=== PATIENT | male | born 1955 | race Caucasian/White ===

== ENCOUNTER 2018-12-05 05:25 | Observation (INO) ==
--- NOTE | 2018-11-18 12:34 | PAT Medication Instructions ---
Medication Instructions Date of Service November 18, 2018 Home Medications allopurinol 300 mg PO DAILY atorvastatin 20 mg PO PM baclofen 10 mg PO TID buspirone 15 mg PO TID duloxetine 20 mg PO DAILY fluticasone propionate [Flonase Allergy Relief] 1 spray INTRANASAL DAILY PRN gabapentin 300 mg PO TID hydroxyzine HCl 50 mg PO BID PRN lorazepam 0.5 mg PO BID PRN naproxen 250 mg PO BID propranolol 10 mg PO TID tramadol 50 mg PO Q8H PRN ASK your surgeon for instructions naproxen 250 mg PO BID DO NOT take the morning of surgery baclofen 10 mg PO TID hydroxyzine HCl 50 mg PO BID PRN Take morning of surgery With a small sip of water, OTHERWISE NOTHING TO EAT OR DRINK AFTER MIDNIGHT: allopurinol 300 mg PO DAILY buspirone 15 mg PO TID duloxetine 20 mg PO DAILY fluticasone propionate [Flonase Allergy Relief] 1 spray INTRANASAL DAILY PRN (if needed) gabapentin 300 mg PO TID lorazepam 0.5 mg PO BID PRN (if needed) propranolol 10 mg PO TID tramadol 50 mg PO Q8H PRN (okay to take up to 4 hours prior to surgery if needed) Take evening before surgery atorvastatin 20 mg PO PM baclofen 10 mg PO TID buspirone 15 mg PO TID gabapentin 300 mg PO TID hydroxyzine HCl 50 mg PO BID PRN (if needed) lorazepam 0.5 mg PO BID PRN (if needed) propranolol 10 mg PO TID tramadol 50 mg PO Q8H PRN (if needed) Other Notes If you have any questions please call us at [phone] or [phone] or [phone] or [phone]
--- NOTE | 2018-11-23 11:10 | Anesthesiology Consultation ---
Date of Service November 23, 2018 Assessment & Plan (1) Encounter for pre-operative examination: Chart Review Chart Review: Acceptable Risk for Surgery and Patient seen in Pre Admission Testing Teaching & Discussion Pre-Anesthesia Teaching/Discussion Notes: Instructed NPO after midnight before surgery,except medications with 15 cc of water. Medication instructions provided according to the PAT guidelines. History Surgery Operation Date: 12/05/18 07:30 Proposed Procedures p C3-C4, C4-C5 Anterior Cervical Discectomy and Fusion with Iliac Crest Bone Graft - Zoran Ryan DO Height/Weight Height: 5 ft 9 in Weight: 79.5 kg Allergies Allergy/AdvReac Type Severity Reaction Status Date / Time No Known Allergies Allergy Verified 11/16/18 11:50 Medications Home Medications Medication Instructions Recorded Confirmed Last Taken allopurinol 300 mg PO DAILY 11/16/18 11/16/18 Unknown atorvastatin 20 mg PO PM 11/16/18 11/16/18 Unknown baclofen 10 mg PO TID 11/16/18 11/16/18 Unknown buspirone 15 mg PO TID 11/16/18 11/16/18 Unknown duloxetine 20 mg PO DAILY 11/16/18 11/16/18 Unknown fluticasone propionate [Flonase 1 spray INTRANASAL DAILY PRN 11/16/18 11/16/18 Unknown Allergy Relief] gabapentin 300 mg PO TID 11/16/18 11/16/18 Unknown hydroxyzine HCl 50 mg PO BID PRN 11/16/18 11/16/18 Unknown lorazepam 0.5 mg PO BID PRN 11/16/18 11/16/18 Unknown naproxen 250 mg PO BID 11/16/18 11/16/18 Unknown propranolol 10 mg PO TID 11/16/18 11/16/18 Unknown tramadol 50 mg PO Q8H PRN 11/16/18 11/16/18 Unknown lisinopril 20 mg PO DAILY 11/23/18 11/23/18 Unknown Past Medical History Medical History Anxiety Emphysema lung EMPHYSEMA VS OTHER OBSTRUCTIVE LUNG DISEASE SUGGESTIVE PER CXR Gout Hyperlipidemia Osteoarthritis Seizure SINGLE EPISODE (AFTER STOPPING KLONOPIN) 10+ YEARS AGO Sleep apnea CPAP (NON-COMPLIANT) Exercise / Class Metabolic Activity III < 4 Walking/Shop/Light housework (USES CANE PRN) Past Surgical History Surgical History Fusion of spine CERVICAL Fusion of spine LUMBAR X2 History of carpal tunnel release RIGHT X2 History of colonoscopy History of surgery RT LEG HARDWARE PLACEMENT History of surgery B/L ELBOW SURGERY History of surgery HAND/THUMB CYST EXCISON History of tonsillectomy Past Anesthesia History No Hx of Anesthesia Complications and No Family Hx of Anesthesia Complications History of PONV No Hx of PONV and No Hx of Motion Sickness Social History Smoking Status: Current every day smoker tobacco type: cigarettes Smoking cigarettes per day: 1/2 PPD X 40 YEARS Do You Dip or Chew Tobacco: No Hx Alcohol Use: Yes Alcohol type: beer alcohol intake frequency: 0-2 drinks per day (2 BEERS/DAY) Hx Substance Use: No substance use type: does not use Review of Systems Congestion improving as of PAT visit 11/23/18 on abx/prednisone (both to be completed prior to surgery). Patient denies chest pain, shortness of breath, wheezing, palpitations. Physical Exam Vital Signs VITALS BP 119/75 P 76 TEMP 98.0 SP02 97%RA RESP 18 PHYSICAL Decreased cervical extension 2/2 cervicalgia. Full TMJ range of motion. TMD 3 finger breaths Mallampati Score 3 Dentition: full dentures on upper; partial on lower Lungs: clear throughout to auscultation Cardiac: regular rate and rhythm, no murmurs noted Spine: normal Carotid arteries: negative bruit Extremities: no edema Testing Laboratory Results 11/23/18 11:39 11/23/18 11:39 11/23/18 11:39 PT 10.8 INR 1.1 APTT 29.1 11/23/18 T&S O-Ab- Electrocardiogram Date: 09/09/18 Findings: + NSR @ (67) Chest X-Ray Date: 11/23/18 Atherosclerosis of the aortic arch. Lungs are hyperinflated. Overall coarsened lung markings. No focal opacity. Findings suggest emphysema or other obstructive lung disease.
--- NOTE | 2018-11-23 11:57 | XRay Report ---
XR chest Pre-admission PA/Lat CLINICAL HISTORY: 63 years-old Male presenting with preoperative assessment, asymptomatic. TECHNIQUE: PA and lateral views of the chest were obtained. COMPARISON: None. FINDINGS: Atherosclerosis of the aortic arch. Cardiac silhouette normal in size. Lungs are hyperinflated. Overa ll coarsened lung markings. No focal opacity. No pleural effusion or pneumothorax. Degenerative barajas es of the thoracic spine. Anterior cervical fusion hardware. Upper abdomen normal. IMPRESSION: 1. Findings suggest emphysema or other obstructive lung disease. No other convincing evidence of acu te cardiopulmonary disease. Electronically signed by: Karlos Hughes M.D. 11/23/2018 11:56 AM
[2018-11-23 12:49] LABS: Basophils # (auto) 0.01 K/uL (0-0.2); Basophils % (auto) 0.1 %; Eosinophils # (auto) 0.02 K/uL (0-0.5); Eosinophils % (auto) 0.3 %; Hematocrit (blood only) 41.2 % (42-52); Hemoglobin 14.8 g/dL (14.0-18.0); Immature Granulocytes # (auto) 0.02 K/uL (0.00-0.02); Immature Granulocytes % (auto) 0.3 %; Lymphocytes # (auto) 1.49 K/uL (1.2-3.4); Lymphocytes % (auto) 18.6 %; Mean Corpuscular Hgb Conc 35.9 g/dL (32-36); Mean Corpuscular Volume 90.4 fL (80-100); Mean Platelet Volume 8.4 fL (7.4-10.4); Monocytes # (auto) 0.26 K/uL (0.11-0.59); Monocytes % (auto) 3.3 %; Neutrophils # (auto) 6.19 K/uL (1.4-6.5); Neutrophils % (auto) 77.4 %; Platelet Count 257 K/uL (130-400); RDW Standard Deviation 46.3 fL (36.4-46.3); Red Blood Count 4.56 M/uL (4.7-6.1); White Blood Count 7.99 K/uL (4.8-10.8)
[2018-11-23 12:58] LABS: BUN Creatinine Ratio 6.2 (10-20); Calcium 9.2 mg/dl (8.5-10.1); Creatinine Clr Calc Pharmacy 98.2 ml/min; Est GFR (African American) 112.3; Est GFR (Non-African American) 96.9; Potassium 3.5 mmol/L (3.5-5.1)
[2018-11-23 13:02] LABS: INR 1.1 (0.9-1.1); Partial Thromboplastin Ratio 1.1; Partial Thromboplastin Time 29.1 Seconds (21.0-31.0); Prothrombin Time 10.8 Seconds (9.0-12.0)
--- NOTE | 2018-12-02 13:59 | History and Physical Report ---
DATE OF ADMISSION: 12/05/2018 He is set up for an ACDF cervical spine, C3-C5 with iliac crest bone graft. HISTORY OF PRESENT ILLNESS: Jignesh is a pleasant gentleman. He has progressive neck pain, arm pain, weakness, paresthesias, numbness and tingling and progressive neurological deficit with 2-level spinal cord compression for urgent surgery. PAST MEDICAL HISTORY: Positive for anxiety, hypertension. PAST SURGICAL HISTORY: Low back surgery, hand, elbow, right leg surgery, neck surgery. ALLERGIES: Negative. SOCIAL HISTORY: Single, moderate drinking, moderate tobacco, sedentary life. REVIEW OF SYSTEMS: Twelve systems reviewed. Negative fevers, sweats, chills. Ear, nose and throat negative. Denies chest pain, palpitations, swelling hands, feet. Denies asthma, wheezing, shortness of breath. Denies nausea, vomiting. Does have some depression. No joint pain, weakness. No diabetes, no easy bruisability. No immune deficiency. MEDICATIONS: Include Lipitor, BuSpar, Zyloprim, Neurontin, lisinopril, Ativan, Inderal. OBJECTIVE: GENERAL: He is alert, oriented. He is 5 feet 10 inches, 170. VITAL SIGNS: Blood pressure 130/80, pulse 80, respiration 16. HEENT: Pupils react to light and accommodation. Ear, nose and throat clear. CARDIAC: Regular rate and rhythm, no ectopy. LUNGS: Clear to auscultation. No rales, rhonchi or wheezing. ABDOMEN: Soft, nontender. MUSCULOSKELETAL: He has hyperreflexia, clonus. He has weakness in hoisting laborer strength, extremity strength throughout upper and lower extremities. IMPRESSION: Cord compression, cervical spine. PROCEDURE: Included anterior cervical discectomy and fusion C3-C5, cervical spine with iliac crest bone graft. [facility]
[2018-12-05] MEDS ORDERED: CEFAZOLIN 2000MG 2,000 MG/15 ML SYR IV SCH (06:00)
[2018-12-05] MEDS ORDERED: SODIUM CHLORIDE 0.9% 1,000 ML IV SCH (06:00)
[2018-12-05] MEDS ORDERED: LR 15ML/HR IV SCH (06:00)
--- NOTE | 2018-12-05 07:09 | History & Physical Bridge Note ---
Date of Service December 05, 2018 History & Physical Bridge Note I have examined the patient, reviewed the History & Physical and in the interval since the performance of the History & Physical I have noted the following changes of clinical significance: no changes noted
[2018-12-05] MEDS ORDERED: GLYCOPYRROLATE 0.2 MG/ML VIAL ONE (07:13)
[2018-12-05] MEDS ORDERED: ePHEDrine sulfate 50 MG/ML AMP ONE ×2 (07:13→09:11)
[2018-12-05] MEDS ORDERED: MIDAZOLAM HCL 1 MG/ML 2ML VIAL ONE ×2 (07:13→07:14)
[2018-12-05] MEDS ORDERED: PROPOFOL IV EMULSION 10 MG/ML 20 ML VIAL IV ONE (07:13)
[2018-12-05] MEDS ORDERED: NEOSTIGMINE METHYLSULFATE 5 MG/5 ML SYR ONE (07:13)
[2018-12-05] MEDS ORDERED: LIDOCAINE HCL 2% 2 ML VIAL/AMP(20MG/ML) INFIL ONE (07:13)
[2018-12-05] MEDS ORDERED: DEXAMETHASONE SOD INJ 4 MG/ML VIAL ONE (07:13)
[2018-12-05] MEDS ORDERED: fentaNYL citrate 100 MCG/2 ML VIAL ONE (07:13)
[2018-12-05] MEDS ORDERED: PHENYLEPHRINE HCL 10 MG/ML VIAL ONE (07:13)
[2018-12-05] MEDS ORDERED: SUCCINYLCHOLINE CHLORIDE 20 MG/ML 10 ML VIAL ONE (07:13)
[2018-12-05] MEDS ORDERED: ONDANSETRON INJ 2 MG/ML 2 ML VIAL ONE (07:13)
[2018-12-05] MEDS ORDERED: fentaNYL citrate 100 MCG/2 ML VIAL IV PRN (07:24)
[2018-12-05] MEDS ORDERED: ePHEDrine sulfate 50 MG/ML AMP IV PRN (07:24)
[2018-12-05] MEDS ORDERED: ONDANSETRON INJ 2 MG/ML 2 ML VIAL IV PRN ×2 (07:24→11:15)
[2018-12-05] MEDS ORDERED: HYDROmorphone INJ 2 MG/ML SYR/VIAL IV PRN (07:24)
[2018-12-05] MEDS ORDERED: ATROPINE SULFATE 0.1 MG/ML 10ML SYR IV PRN (07:24)
[2018-12-05] MEDS ORDERED: ALBUT/IPRATROP 3MG/0.5MG NEB 3 ML VIAL INH PRN (07:26)
[2018-12-05] MEDS ORDERED: THROMBIN FOR SOLN 20000 UNIT KIT ONE (07:32)
[2018-12-05] MEDS ORDERED: BACITRACIN INJ 50,000 UNIT VIAL ONE (07:32)
[2018-12-05] MEDS ORDERED: BUPIVACAINE/EPINEPHRINE 0.5% MPF 1:200,000 30 ML VIAL ONE ×2 (07:32→07:50)
[2018-12-05] MEDS ORDERED: GELATIN SPONGE SZ 100 ONE (07:32)
[2018-12-05] MEDS ORDERED: HYDROmorphone INJ 2 MG/ML SYR/VIAL ONE (08:19)
--- NOTE | 2018-12-05 09:29 | Post Operative Brief Note ---
Immediate Post Op Note v1 Date of Surgery December 05, 2018 Pre & Post Diagnosis Operation Date: 12/05/18 07:30 Pre-Op Diagnosis: Cervical Spondylosis Post-Op Diagnosis: Cervical Spondylosis Procedure Operation Date: 12/05/18 07:30 Actual Procedures p C3-C4, C4-C5 Anterior Cervical Discectomy and Fusion with Iliac Crest Bone Graft Left side(Not Applicable) - Zoran Ryan DO Surgeon Zoran Ryan DO Botanical Technical Officer riley Estimated Blood Loss 10 Findings Consistent with Post-Op Diagnosis Drains [place] Drain (neck) Anesthesia Type General Disposition Accompanied Patient To Recovery: Yes Overlapping Procedure I was immediately available: during the entire case.
--- NOTE | 2018-12-05 09:32 | Fluoroscopy Report ---
FL spine 1V any level HISTORY: 63 years-old Male C3-C4, C4-C5 CERVICAL FUSION COMPARISON: MRI of the cervical spine 10/25/2018 TECHNIQUE: Single lateral spot fluoroscopic image of the cervical spine was obtained utilizing 4.3 se conds fluoroscopy time FINDINGS: Anterior fusion and discectomy changes noted at what appears to be the C3-C4 and C4-C5 levels with un changed anterior plate and screw fusion at C5-C6. Alignment appears satisfactory on these images. Mul tilevel spondylitic spurring with facet arthrosis. IMPRESSION: Fluoroscopic assistance as above. Please see operative report for further details. The above report was generated using voice recognition software. It may contain grammatical, syntax o r spelling errors. Electronically signed by: Maurizio Mcleod M.D. 12/05/2018 9:31 AM
--- NOTE | 2018-12-05 10:42 | Anesthesiology Progress Note ---
Date of Service December 05, 2018 Anesthesia Post Procedure Vital Signs Vital Signs: Temp Pulse Pulse Resp BP Pulse Ox 12/05/18 10:18 60 14 169/96 H 98 12/05/18 10:00 62 14 159/94 H 100 12/05/18 09:50 78 24 166/90 H 100 12/05/18 09:42 36.7 C 83 16 148/90 H 98 12/05/18 06:15 36.9 C 73 20 153/95 H 97 Transfer of Care Handoff Completed per policy Notes Mental Status: alert / awake / arousable and participated in evaluation Patient Amnestic to Procedure: Yes Nausea / Vomiting: adequately controlled Pain: adequately controlled Airway Patency, RR, SpO2: stable & adequate BP & HR: stable & adequate Hydration State: stable & adequate Anesthetic Complications: no major complications apparent and Pt Satisfied with anesthetic care
[2018-12-05] MEDS ORDERED: DiphenhydrAMINE HCL 50 MG/ML VIAL IV PRN (11:15)
[2018-12-05] MEDS ORDERED: HYDROmorphone INJ 0.5 MG/0.5 ML SYR IV PRN (11:15)
[2018-12-05] MEDS ORDERED: RACEPINEPHRINE 2.25% NEBU SOLN 0.5 ML VIAL INH PRN (11:15)
[2018-12-05] MEDS ORDERED: NALOXONE HCL 0.4 MG/1 ML VIAL/CARP IV PRN (11:15)
[2018-12-05] MEDS ORDERED: MAGNESIUM HYDROXIDE SUSP 30 ML UDC PO PRN (11:15)
[2018-12-05] MEDS ORDERED: DEXAMETHASONE SOD PHOSPHATE 8 MG in SYRINGE 0 ML IV PRN (11:15)
[2018-12-05] MEDS ORDERED: ACETAMINOPHEN 1,000 MG/100 ML VIAL IV PRN (11:15)
[2018-12-05] MEDS ORDERED: LORazepam 0.5 MG/1 ML VIAL IV PRN (11:15)
[2018-12-05] MEDS: SODIUM CHLORIDE 0.9% 1000ML 1,000 ML IV SCH (11:53)
--- NOTE | 2018-12-05 12:34 | Operative Report ---
DATE OF OPERATION: 12/05/2018 SURGEON: Zoran Ryan DO MANNEQUIN SANDER AND FINISHER: Timoteo Patel PA-C PREOPERATIVE DIAGNOSIS: Spinal cord compression, C3-C4, C4-C5 cervical spine. POSTOPERATIVE DIAGNOSIS: Spinal cord compression, C3-C4, C4-C5 cervical spine. DESCRIPTION OF PROCEDURE: Prior to the patient being brought back to the operating room, he was carefully and appropriately marked in the holding area. Bridge note provided. The patient was brought to the operating room and general intubated anesthetic provided to the patient, scrubbed with Betadine, prepped with DuraPrep, surgery commenced. I made a transverse skin incision over the C4 vertebral body dissecting the soft tissue in the same plane, I was able to come readily down on the anterior aspect of the cervical spine at the C3-C4 interval. A formal discectomy was provided at the C3-C4 interval of the cervical spine, and at C4-C5, we took out disc material, we were back to the spinal cord, I took out hard disc and some soft material, completed the foraminotomies as well, I was pleased with the decompression. We then went to the iliac crest, we were able to harvest a piece of structural autograft from the left iliac crest. Placed in tandem with the PEEK interbody cage in the cervical spine region at C3-C4 and C4-C5. The implant was by the THEMA. Screws fixated the implants perfectly. The cross table lateral images were excellent. We began our closure. We irrigated and closed the cervical spine and closed over a [place] drain. There were no apparent complications. The iliac crest closed with nylon suture in very stepwise fashion. IMPLANTS USED IN CASE: THEMA. Sponge and needle count correct at the close. ESTIMATED BLOOD LOSS: 10 mL. I attest to the content of the Intraoperative Record and any orders documented therein. Any exception s are noted below.
[2018-12-05] MEDS: GABAPENTIN 300 MG CAP PO SCH ×2 (13:52→20:25)
[2018-12-05] MEDS: PROPRANOLOL HCL 10 MG TAB PO SCH ×2 (13:52→20:25)
[2018-12-05] MEDS: CEFAZOLIN 2000MG 2,000 MG/15 ML SYR IV SCH ×2 (13:54→22:07)
[2018-12-05] MEDS ORDERED: BusPIRone 15 MG TAB PO SCH (14:00)
[2018-12-05] MEDS: BUSPIRONE HCL 7.5 MG TAB PO SCH ×2 (14:14→20:25)
[2018-12-05] MEDS: OXYCODONE HCL IR 5 MG TAB (IMMEDIATE RELEASE) PO PRN (15:46)
[2018-12-05] MEDS ORDERED: COUGH DROP (SUGAR FREE) LOZ 24 LOZ/1 BOX BUCCAL PRN (16:34)
[2018-12-05] MEDS ORDERED: COUGH DROP (SUGAR FREE) LOZ 24 LOZ/1 BOX BUCCAL ONE (16:39)
[2018-12-05] MEDS: DOCUSATE SODIUM 100 MG CAP PO SCH (20:26)
[2018-12-05] MEDS ORDERED: ATORVASTATIN 20 MG TAB PO SCH (21:00)
[2018-12-06] MEDS: SODIUM CHLORIDE 0.9% 1000ML 1,000 ML IV SCH ×2 (00:13→10:52)
[2018-12-06] MEDS: OXYCODONE HCL IR 5 MG TAB (IMMEDIATE RELEASE) PO PRN (01:09)
[2018-12-06] MEDS: CEFAZOLIN 2000MG 2,000 MG/15 ML SYR IV SCH (05:50)
[2018-12-06] MEDS: DOCUSATE SODIUM 100 MG CAP PO SCH (08:03)
[2018-12-06] MEDS: GABAPENTIN 300 MG CAP PO SCH (08:03)
[2018-12-06] MEDS: BUSPIRONE HCL 7.5 MG TAB PO SCH (08:04)
[2018-12-06] MEDS: PROPRANOLOL HCL 10 MG TAB PO SCH (08:04)
[2018-12-06] MEDS ORDERED: ALLOPURINOL 300 MG TAB PO SCH (09:00)
[2018-12-06] MEDS ORDERED: LISINOPRIL 20 MG TAB PO SCH (09:00)
[2018-12-06] MEDS ORDERED: DULOXETINE HCL 20 MG CAP PO SCH (09:00)
--- NOTE | 2018-12-06 09:07 | Anesthesiology Progress Note ---
Date of Service December 06, 2018 Anesthesia Post Procedure Vital Signs Vital Signs: Temp Pulse Pulse Pulse Resp BP Pulse Ox 12/06/18 08:00 12/06/18 07:45 36.7 C 72 16 142/84 H 97 12/06/18 07:23 76 18 96 12/06/18 05:55 36.4 C L 70 16 154/94 H 97 12/06/18 04:03 64 16 97 12/06/18 03:55 36.6 C 71 18 160/85 H 96 12/06/18 02:00 36.5 C 68 16 154/86 H 96 12/06/18 00:00 36.4 C L 60 16 159/89 H 12/05/18 23:19 68 18 95 12/05/18 22:00 36.4 C L 70 16 145/99 H 97 12/05/18 20:20 36.4 C L 62 18 163/89 H 98 12/05/18 19:14 64 17 97 12/05/18 18:00 36.4 C L 71 17 158/89 H 99 12/05/18 15:45 91 H 16 143/89 H 16 L 12/05/18 15:18 95 H 18 98 12/05/18 13:59 68 18 130/88 96 12/05/18 12:52 83 16 141/94 H 97 12/05/18 12:00 36.6 C 78 18 163/92 H 99 12/05/18 11:30 77 18 167/94 H 99 12/05/18 11:00 36.6 C 85 16 136/91 3 L 12/05/18 10:40 36.5 C 70 19 161/93 H 96 12/05/18 10:30 78 18 155/96 H 99 12/05/18 10:20 60 14 169/96 H 98 12/05/18 10:00 62 14 159/94 H 100 12/05/18 09:50 78 24 166/90 H 100 12/05/18 09:42 36.7 C 83 16 148/90 H 98 Pulse Ox 12/06/18 08:00 96 12/06/18 07:45 12/06/18 07:23 12/06/18 05:55 12/06/18 04:03 12/06/18 03:55 12/06/18 02:00 12/06/18 00:00 12/05/18 23:19 12/05/18 22:00 12/05/18 20:20 12/05/18 19:14 12/05/18 18:00 12/05/18 15:45 12/05/18 15:18 12/05/18 13:59 12/05/18 12:52 12/05/18 12:00 12/05/18 11:30 12/05/18 11:00 12/05/18 10:40 12/05/18 10:30 12/05/18 10:20 12/05/18 10:00 12/05/18 09:50 12/05/18 09:42 Pain Intensity Anterior Neck: Pain Intensity: 0 Left Hip: Pain Intensity: 2 Notes Mental Status: alert / awake / arousable Patient Amnestic to Procedure: Yes Nausea / Vomiting: adequately controlled Pain: adequately controlled Airway Patency, RR, SpO2: stable & adequate Hydration State: stable & adequate Anesthetic Complications: no major complications apparent
--- NOTE | 2018-12-06 10:44 | Discharge Summary ---
He is improved, stable. No swallowing difficulty. No breathing difficulty. No issues. He has had an uneventful 20 hours stay. He will be discharged home this morning in improved stable condition. Dressings will be changed. He has medication at home. Followup examination will be done in the office in approximately 2 weeks.
[2018-12-07] MEDS ORDERED: BISACODYL 5 MG TABEC PO PRN (09:44)
== END 2018-12-06 12:10 | disposition home health service (06) ==
LOC: ASU 05:25 → 3E 05:25